=== PATIENT | male | born 1955 | race Caucasian/White ===

== ENCOUNTER 2019-07-03 13:04 | Emergency (ER) | payer MEDICARE ==
[~2019-07-03] VITALS: Ht 188 cm; Wt 130.8 kg
[2019-07-03 13:24] VITALS: BP 167/97
--- NOTE | 2019-07-03 14:10 | NUR ---
PATIENT CHANGED INTO GRREN TOP AND PANTS WITH TECH WATCHING. ALL BELONGINGS INCLUDING WALLET WERE GIVEN TO HIS WHO IS AT BEDSIDE: DUARTE [phone] HOME, [phone] CELL PATIENT AMBULATED INTO ER ROOM 21 WITH NALLELY MARK RN
[2019-07-03 14:20] LABS: URINE AMPHETAMINE SCREEN NEGATIVE (Neg); URINE BARBITUATE SCREEN NEGATIVE (Neg); URINE BENZODIAZEPINES SCREEN NEGATIVE (Neg); URINE CANNABINOID SCREEN NEGATIVE (Neg); URINE COCAINE SCREEN NEGATIVE (Neg); URINE METHADONE SCREEN NEGATIVE (Neg); URINE OPIATE SCREEN NEGATIVE (Neg); URINE PHENCYCLIDINE SCREEN NEGATIVE (Neg)
[2019-07-03 14:40] LABS: BASOPHILS # (AUTO) 0.1 X10'3 (0-0.2); BASOPHILS % (AUTO) 0.9 % (0-1); EOSINOPHILS # (AUTO) 0.1 X10'3 (0-0.9); EOSINOPHILS % (AUTO) 1.6 % (0-6); HEMATOCRIT 40.3 % (42.0-52.0); HEMOGLOBIN 13.3 g/dl (14.0-17.9); LYMPHOCYTES # (AUTO) 1.1 X10'3 (1.1-4.8); LYMPHOCYTES % (AUTO) 16.3 % (21-51); MEAN CORPUSCULAR HEMOGLOBIN 30.6 PG (27.0-31.0); MEAN CORPUSCULAR VOLUME 92.7 FL (78-98); MEAN PLATELET VOLUME 9.1 FL (7.4-10.4); MONOCYTES # (AUTO) 0.7 X10'3 (0-0.9); MONOCYTES % (AUTO) 9.4 % (2-12); NEUTROPHILS % (AUTO) 71.8 % (42-75); PLATELET COUNT 155 X10'3 (140-440); RED BLOOD COUNT 4.35 X10'6 (4.70-6.10); RED CELL DISTRIBUTION WIDTH 13.3 % (11.5-14.5); WHITE BLOOD COUNT 6.9 X10'3 (4.5-11.0)
[2019-07-03 14:57] LABS: ANION GAP 8 (8-16); CHLORIDE 107 MMOL/L (99-107); GLUCOSE 103 MG/DL (70-104); POTASSIUM 3.7 MMOL/L (3.5-5.1); SODIUM 144 MMOL/L (135-145); TOTAL CARBON DIOXIDE 29.3 MMOL/L (24-32)
[2019-07-03 14:58] LABS: ALANINE AMINOTRANSFERASE 28 U/L (12-78); ALBUMIN 3.4 G/DL (3.4-5.0); ALBUMIN/GLOBULIN RATIO 0.9 (1.1-1.5); ALKALINE PHOSPHATASE 86 IU/L (46-116); ASPARTATE AMINO TRANSFERASE 25 U/L (10-37); BILIRUBIN,TOTAL 0.5 MG/DL (0.1-1.0); BLOOD UREA NITROGEN 7 MG/DL (7-18); CALCIUM 8.9 MG/DL (8.5-10.1); TOTAL PROTEIN 7.1 G/DL (6.4-8.2)
[2019-07-03 15:05] LABS: ETHANOL < 0.010 GM/DL (0.0-0.010)
[2019-07-03 15:19] LABS: BUN/CREATININE RATIO 4.1 (5.4-32.0); CREATININE 1.72 MG/DL (0.60-1.10); eGFR 40 ML/MIN
--- NOTE | 2019-07-03 15:31 | NUR ---
The patient is a 63 year old male with a history of depression and/or Bipolar Disorder for at least 30 years. He was doing well for years on lithium and a small dose of xanax as well as paxil. Two months ago he was taken off lithium due to "kidney issues." He was put on Ziprasidone 120 mg at dinnertime, continued Paxil 40mg daily and was having severe insomnia and last night took his first dose of Temazepam 15mg qhs and states he slept for the first time in two weeks." He sees Dr. Hampton. 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 He has had increased severe depression for the last two weeks, has not been eating or sleeping. He is depressed and restless. Has had just a fleeting passive suicidal thought but states he would never kill himself. He is not experiencing any hallucinations and is alert, oriented and articulate. His is at bedside.
--- NOTE | 2019-07-03 15:54 | NUR ---
CALLED LAB, LAB HAS ENOUGH URINE TO RUN UA. LAB WILL RUN UA
[2019-07-03 16:02] LABS: CLARITY,URINE CLEAR (Clear); COLOR,URINE YELLOW (Yellow); GLUCOSE, URINE NEGATIVE (Neg); KETONES,URINE NEGATIVE (Neg); LEUKOCYTE ESTERASE ,URINE NEGATIVE (Neg); NITRITES, URINE NEGATIVE (Neg); OCCULT BLOOD,URINE NEGATIVE (Neg); PROTEIN,URINE NEGATIVE (Neg); UROBILINOGEN,URINE 0.2 E.U/dL (0.2-1.0)
[2019-07-03 16:09] LABS: UA COLLECTION TYPE CLN CATCH MIDSTREAM
--- NOTE | 2019-07-03 16:10 | NUR ---
SPOKE WITH PHARMACIST REGARDING MEDICATION RECONCILLIATION; PRIMARY RN UNABLE TO INPUT; PHARMACIST WILL INPUT MEDICATION RECONCILLIATION.
[2019-07-03] MEDS ORDERED: PARO40TA4 PO (16:13)
[2019-07-03] MEDS ORDERED: ZIPR60CA7 PO (16:13)
[2019-07-03] MEDS ORDERED: TEMA15CA PO (16:13)
--- NOTE | 2019-07-03 16:20 | NUR ---
ELIS Summers at bedside.
--- NOTE | 2019-07-03 16:21 | NUR ---
SPOKE WITH CHAR GILLIS [phone]. HE WILL REVIEW THE PATIENT'S LABS AND COME DOWN AND ASSESS PATIENT.
[2019-07-03] MEDS ORDERED: LORazepam 1 MG tablet PO ONE (16:30)
--- NOTE | 2019-07-03 16:47 | NUR ---
ELIS Summers consulting with patient after speaking with Dr. Hampton (patient's outside doctor)
[2019-07-03] MEDS ORDERED: LAMO25TA4 PO (16:54)
[2019-07-03] MEDS ORDERED: LORA-269 PO (16:54)
--- NOTE | 2019-07-03 17:09 | NUR ---
Patient was given discharge instructions and presciptions. Stated understanding of plan.
== END 2019-07-03 17:12 | disposition home or self-care (01) ==
LOC: ER 13:04
DX: F32.9 Major depressive disorder, single episode, unspecified (principal); F41.9 Anxiety disorder, unspecified; Z79.899 Other long term (current) drug therapy
CPT/HCPCS: 36415; 80053; 80305; 80320; 81003; 84443; 85025; 99284

== ENCOUNTER 2019-08-24 15:47 | Emergency (ER) | payer MEDICARE ==
[~2019-08-24] VITALS: Ht 188 cm; Wt 120.0 kg
[~2019-08-24 15:47] MED LIST: LAMO25TA4 PO; LORA-269 PO; PARO40TA4 PO; TEMA15CA PO; ZIPR60CA7 PO
[2019-08-24] MEDS ORDERED: LAMO100T2 PO (16:34)
[2019-08-24] MEDS ORDERED: LORA-269 PO (16:35)
[2019-08-24] MEDS ORDERED: MIRT15TA PO (16:37)
[2019-08-24] MEDS ORDERED: LURA80TA3 PO (16:42)
[2019-08-24 17:21] LABS: BASOPHILS # (AUTO) 0.1 X10'3 (0-0.2); BASOPHILS % (AUTO) 1.2 % (0-1); EOSINOPHILS # (AUTO) 0.1 X10'3 (0-0.9); EOSINOPHILS % (AUTO) 2.2 % (0-6); HEMATOCRIT 36.8 % (42.0-52.0); HEMOGLOBIN 12.3 g/dl (14.0-17.9); LYMPHOCYTES # (AUTO) 1.6 X10'3 (1.1-4.8); LYMPHOCYTES % (AUTO) 30.1 % (21-51); MEAN CORPUSCULAR HEMOGLOBIN 29.7 PG (27.0-31.0); MEAN CORPUSCULAR HGB CONC 33.5 g/dL (33.0-36.5); MEAN CORPUSCULAR VOLUME 88.6 FL (78-98); MEAN PLATELET VOLUME 8.7 FL (7.4-10.4); MONOCYTES # (AUTO) 0.6 X10'3 (0-0.9); MONOCYTES % (AUTO) 10.8 % (2-12); NEUTROPHILS % (AUTO) 55.7 % (42-75); PLATELET COUNT 177 X10'3 (140-440); RED BLOOD COUNT 4.15 X10'6 (4.70-6.10); RED CELL DISTRIBUTION WIDTH 14.1 % (11.5-14.5); WHITE BLOOD COUNT 5.4 X10'3 (4.5-11.0)
[2019-08-24 17:28] LABS: CLARITY,URINE CLEAR (Clear); COLOR,URINE YELLOW (Yellow); GLUCOSE, URINE NEGATIVE (Neg); KETONES,URINE NEGATIVE (Neg); LEUKOCYTE ESTERASE ,URINE SMALL (Neg); NITRITES, URINE NEGATIVE (Neg); OCCULT BLOOD,URINE TRACE-LYSED (Neg); PROTEIN,URINE NEGATIVE (Neg); UA COLLECTION TYPE CLN CATCH MIDSTREAM; UROBILINOGEN,URINE 0.2 E.U/dL (0.2-1.0)
[2019-08-24 17:34] LABS: ALANINE AMINOTRANSFERASE 28 U/L (12-78); ALBUMIN 3.1 G/DL (3.4-5.0); ALBUMIN/GLOBULIN RATIO 0.8 (1.1-1.5); ALKALINE PHOSPHATASE 87 IU/L (46-116); ANION GAP 7 (8-16); ASPARTATE AMINO TRANSFERASE 18 U/L (10-37); BILIRUBIN,TOTAL 0.4 MG/DL (0.1-1.0); BLOOD UREA NITROGEN 11 MG/DL (7-18); BUN/CREATININE RATIO 6.7 (5.4-32.0); CHLORIDE 107 MMOL/L (99-107); CREATININE 1.63 MG/DL (0.60-1.10); GLUCOSE 92 MG/DL (70-104); POTASSIUM 3.8 MMOL/L (3.5-5.1); SODIUM 141 MMOL/L (135-145); TOTAL CARBON DIOXIDE 26.6 MMOL/L (24-32); TOTAL PROTEIN 6.8 G/DL (6.4-8.2); eGFR 43 ML/MIN
[2019-08-24 17:40] LABS: URINE AMPHETAMINE SCREEN NEGATIVE (Neg); URINE BARBITUATE SCREEN NEGATIVE (Neg); URINE BENZODIAZEPINES SCREEN NEGATIVE (Neg); URINE CANNABINOID SCREEN NEGATIVE (Neg); URINE COCAINE SCREEN NEGATIVE (Neg); URINE METHADONE SCREEN NEGATIVE (Neg); URINE OPIATE SCREEN NEGATIVE (Neg); URINE PHENCYCLIDINE SCREEN NEGATIVE (Neg)
[2019-08-24 17:47] LABS: ETHANOL < 0.010 GM/DL (0.0-0.010)
[2019-08-24 17:48] LABS: BACTERIA,URINE FEW /HPF (Neg); RBC,URINE 0-2 /HPF (0-2); SQUAMOUS EPITHELIAL CELL,UR FEW /LPF (FEW); WBC,URINE 0-4 /HPF (0-4)
--- NOTE | 2019-08-24 18:30 | NUR ---
PACKET FAXED TO [facility] BY TECH
--- NOTE | 2019-08-24 18:57 | NUR ---
INTRODUCED MYSELF , DISCUSED PLAN OF CARE, PATIENT DENIED HAVING ANYNEEDS AT THIS TIME , AAWAITING DR WILLIS AT THIS TIME .
[2019-08-24] MEDS ORDERED: LORazepam 1 MG tablet PO ONE (19:10)
--- NOTE | 2019-08-24 19:20 | NUR ---
PT STATES THE HE TOOK ATIVAN YESTERDAY AND TODAY ONE AT 7 AM , 10 AM 2 PM , EDUCATED PATIENT THAT HE NEEDS TO TRY THE ATIVAN 1 MG PO AND ONCE ABD IF RELEIF IS NOT MET DEEDEE MURPHY WITH .
--- NOTE | 2019-08-24 19:50 | NUR ---
MEDICATED PT WITH 1 MG OF ATIVAN FOR ANXIETY. PT STATES THAT 1 MG MIGHT NOT BE EFFECTIVE HE HAS ALREADY TAKEN THREE TODAY WITHOUT RELEIF. PT STATES THAT HE TAKE 1 MG OF ATIVAN AT 7 AM AGAIN AT 10 AM ANOTHER AT 1400. EDUCATED PATIENT THAT DR WILLIS WOULD LIKE HIM TO TRY THIS NOW AND IF IT DOES NOT OFFER RELIEF WE WILL NOTIFY
--- NOTE | 2019-08-24 19:55 | NUR ---
PT STATES HER SON" LOCKED UP THE GUNS "IN A LOCKED SAFE WHERE THE PATIENT DOES NOT HAVE ACCESS
--- NOTE | 2019-08-24 19:59 | NUR ---
PT OFF UNIT LEFT HER PHONE NUMBER [phone] DUARTE FELDER
--- NOTE | 2019-08-24 20:26 | NUR ---
PT RESTING ON RIGHT SIDE QUIETLY
--- NOTE | 2019-08-24 20:50 | NUR ---
[facility] CALLED REPORTING THAT THE PACKET FAXED WAS INCOMPLETE MISSING [facility] ASKING TO RE FAX PACKET
[2019-08-24] MEDS ORDERED: lurasidone 20mg tablet PO SCH (21:00)
[2019-08-24] MEDS ORDERED: temazepam 15mg capsule PO SCH (21:00)
[2019-08-24] MEDS ORDERED: mirtazapine 15mg tablet PO SCH (21:00)
--- NOTE | 2019-08-24 21:00 | NUR ---
PACKET REFAXED TO [facility] REQUESTED
--- NOTE | 2019-08-24 21:15 | NUR ---
DR WILLIS TO SEE PATIENT
--- NOTE | 2019-08-24 21:45 | NUR ---
PT STATES THAT HE WOULD BE WILLING TO BE ADMITTED TO BE[facility]IOR [facility]ALTH FOR TREATMENT IF NECESSARY.
--- NOTE | 2019-08-24 21:47 | NUR ---
PT VERY COROPORATIVE . MEDICATED WITH HIS 2100 MEDS ORDERED . NO QUESTIOSN ASKED .
--- NOTE | 2019-08-24 22:45 | NUR ---
PT ASLEEP ON HIS RIGHT SIDE RESP UNLABORED WILL CONTINUE TO MONITOR
--- NOTE | 2019-08-25 00:12 | NUR ---
PT SELF REPOSTIONS IN HIS SLEEP. RESP RATE UNLABORED WILL CONTINUE TO MONITOR
--- NOTE | 2019-08-25 00:55 | NUR ---
non admin of 2400 ativan pt asleep ,
--- NOTE | 2019-08-25 02:00 | NUR ---
PT SLEEPING PRONE . SELF REPOSTIONS AURSOABLE UPON ASSSESSMENT. RESP UNLABORED WILL CONINUE TO MONITOR AND REASSESS
--- NOTE | 2019-08-25 02:50 | NUR ---
PT NOW LAYING ON HIS LEFT SIDE SLEEPING , UNLOBERED RESPIRATIONS WILL CONTINUE TO MONITOR
--- NOTE | 2019-08-25 03:41 | NUR ---
PT ASLEEP ON HIS LEFT SIDE RESP UNLABORED WILL CONTINUE TO ASSESS ADN MONITOR
--- NOTE | 2019-08-25 04:47 | NUR ---
PT SLEEPING PEACEFULLY RESP UNLABORED. SELF REPOSITIONING. WILL CONTINUE TO MONITOR AND REASSESS
--- NOTE | 2019-08-25 06:32 | NUR ---
Received report and assumed care for this patient. He is resting in bed peacefully at this time. No distress observed. Will continue to monitor.
[2019-08-25] MEDS ORDERED: lamoTRIgine 100mg tablet PO SCH (08:00)
[2019-08-25] MEDS ORDERED: PARoxetine 20mg tablet PO SCH (08:00)
--- NOTE | 2019-08-25 08:23 | NUR ---
Breaking primary RN, pt sitting up in bed eating breakfast, calm, no agitation apparent
[2019-08-25] MEDS: LORazepam 1 MG tablet PO SCH ×2 (09:01)
--- NOTE | 2019-08-25 10:30 | NUR ---
is at bedside visiting. Pt reports that he is anxious and is noted moving his legs, fidgeting. Atarax given. Will continue to monitor.
[2019-08-25] MEDS ORDERED: hydrOXYzine 25 MG tablet PO ONE (10:40)
--- NOTE | 2019-08-25 11:37 | NUR ---
Breaking primary RN, pt is laying on his left side, his just stepped out, no s/s of agitation at this time
--- NOTE | 2019-08-25 11:45 | NUR ---
Tyler parkinson [facility] is at bedside evaluating the patient, is present
--- NOTE | 2019-08-25 13:30 | NUR ---
Spoke to Tyler from [facility] and Pt has been accepted to Behavioral health floor at [facility]. , Charito notified. Pt states he is happy to hear this news.
--- NOTE | 2019-08-25 14:45 | NUR ---
Pt d/c'd from unit to [facility] floor. He is transported in accompanied by security and [facility] unit tech. All personal items were inventoried and in Pt's possession at time of D/C. No distress observed. D/C information was discussed with patient. All questions were answered and Pt verbalized understanding. Tobacco cessation information declined. notified of transfer. Pt states he is still anxious and has thoughts of SI at times.
[2019-08-25 15:37] VITALS: BP 124/82
== END 2019-08-25 14:45 ==
LOC: ER 15:48
DX: R45.851 Suicidal ideations (principal); F31.9 Bipolar disorder, unspecified; Z79.899 Other long term (current) drug therapy
CPT/HCPCS: 36415; 80053; 80305; 80320; 81001; 84443; 85025; 99285; Z7610

== ENCOUNTER 2019-08-25 14:10 | Inpatient (IN) | payer MEDICARE ==
[~2019-08-25] VITALS: Ht 182.9 cm; Wt 126.8 kg
[~2019-08-25 14:10] MED LIST changes: +LAMO100T2 PO; -LAMO25TA4 PO; +LURA80TA3 PO; +MIRT15TA PO; -ZIPR60CA7 PO
[2019-08-25] MEDS ORDERED: loperamide 2mg capsule PO PRN (15:20)
[2019-08-25] MEDS ORDERED: hydrOXYzine 25 MG tablet PO PRN (15:20)
[2019-08-25] MEDS ORDERED: acetaminophen 325mg tablet PO PRN ×2 (15:20)
[2019-08-25] MEDS ORDERED: LORazepam 1 MG tablet PO PRN (15:20)
[2019-08-25] MEDS ORDERED: mag hydrox/Alum hydrox/simeth 30ml oral suspension PO PRN (15:20)
[2019-08-25] MEDS ORDERED: magnesium hydroxide 30ml (MOM) UD suspension PO PRN (15:20)
--- NOTE | 2019-08-25 15:25 | NUR ---
Admit note: Pt admitted voluntarily for depression with suicidal ideation at 1445. Pt states he told his to lock the guns up due to not feeling safe. Pt states he has been taking his medications. Pt had to stop taking his [place] due to kidney injury. Pt states he feels trapped with no way out. Pt admitted for his safety and medication stabilization.
[2019-08-25 16:56] VITALS: BP 159/85
[2019-08-25 19:43] VITALS: BP 139/81
[2019-08-25] MEDS: mirtazapine 15mg tablet PO SCH (20:24)
[2019-08-25] MEDS: lurasidone 20mg tablet PO SCH (20:24)
--- NOTE | 2019-08-26 01:12 | NUR ---
Progress note: Chief complaint: Depression, SI Legal hold: vol Client on voluntary status for DTS. Report received from nurse Ni with use of SBAR. Why are they here: Pt admitted voluntarily for depression with suicidal ideation after self presenting to ED. Pt states he told his to lock the guns up due to not feeling safe. Pt states he has been taking his medications. Pt had to stop taking his [place] due to kidney injury. Pt states he feels trapped with no way out. Pt admitted for his safety and medication stabilization Diagnosis/presenting symptoms:Depression, SI Assessment What has happened this shift: Pt mostly isolated to his room during shift. He was wearing semi clean green scrubs with unkempt hair. pt was cooperative and friendly during 1:1, reporting that he currently has no physical complaints. pt endorses si, denies hi and a/vh. pt accepted hs meds without issue and went back to bed after snack. S/I, H/I: endorses SI A/VH: denies Sleep:all shift ADL's:independent Group attendance:snack Were meds taken:yes Any med S/E: none observed Mental Status Exam Appearance: wearing scrubs, slightly disheveled Eye contact:good Behavior:calm, tired Speech:clear, normal tone Mood:fatigued Affect:flat Thought process:linear Thought Content:medication management Cognition:good Insight:fair Judgment:fair Interventions PRN's used: none Therapeutic interventions: 1:1 physical assessment, attempted mental health assessment, monitored VS, encouraged pt to interact with staff, encouraged fluids, maintained safe environment, provided active listening with positive reinforcement, Q 15 safety checks. Restraints/seclusion/emergency medication: None Justification of Continued Inpatient Treatment: Pt is in need of crisis interruption and stabilization in a safe and therapeutic environment as well as medication initiation, adjustment, and management.
[2019-08-26 07:00] VITALS: BP 151/94
[2019-08-26 07:59] LABS: HEMOGLOBIN A1C 6.3 % (4.5-6.2)
[2019-08-26] MEDS ORDERED: PARoxetine 20mg tablet PO SCH (08:00)
[2019-08-26 08:01] LABS: CHOL/HDL RATIO 4.1 (0.00-4.99); CHOLESTEROL 154 MG/DL (0-200); HDL CHOLESTEROL 38 MG/DL (35-60); LDL CHOLESTEROL 102 MG/DL (50-100); TRIGLYCERIDES 90 MG/DL (20-135)
[2019-08-26] MEDS: lamoTRIgine 100mg tablet PO SCH (08:17)
[2019-08-26] MEDS: LORazepam 1 MG tablet PO SCH ×4 (08:17→20:18)
[2019-08-26] MEDS ORDERED: pneumococcal 23-VAL P-sac vacc 25 mcg/0.5ml vial IMVAC ONE (10:00)
[2019-08-26] MEDS ORDERED: FLU VACC QS 2019-20 (6 MOS UP) 60 MCG/0.5 ML VIAL IMVAC ONE (10:00)
--- NOTE | 2019-08-26 10:03 | NUR ---
Malnutrition consult: Pt scaled wt this visit 126.8kg, previous scaled weight in June of this year 130.8kg; this is a non significant weight loss of 3% in 2 months. No documented muscle weakness or edema. Pt documented with PO intake avg 75% on regular diet, meeting nutrient needs. Pt does not meet criteria for malnutrition at this time. Will continue to monitor. Addendum: 08/26/19 at 1003 by Wing Emi GABRIEL Amended: Links added. Addendum: 08/26/19 at [address] I have reviewed and agree with note by Wharf Operator. Nevin Rose RD
--- NOTE | 2019-08-26 18:35 | NUR ---
Nursing Progress Note: Chief complaint: Depression, SI Legal hold: voluntary Client on voluntary status for DTS. Report received from nurse Skylar RN with use of SBAR. Why are they here: Pt admitted voluntarily for depression with suicidal ideation after self presenting to ED. Pt states he told his to lock the guns up due to not feeling safe. Pt states he has been taking his medications. Pt had to stop taking his [place] due to kidney disease. Pt states he feels trapped with no way out. Pt admitted for his safety and medication stabilization. Diagnosis/presenting symptoms:Depression, SI Assessment What has happened this shift: Patient napped after breakfast and medications. During 1:1, patient reports that he is feeling anxious thinking about all the work he has to do around his house. Patient states that his depression is a 5/10 on depression scale. Questions answered regarding routine, groups. Patient is hoping to have more activities on unit today, as he was admitted after the groups have taken place yesterday, and he didnt feel there was not enough to do. S/I, H/I: Denies. A/VH: denies Sleep: Slept until 11:00 group. ADL's: independent Group attendance: Yes. Were meds taken: yes Any med S/E: none observed Mental Status Exam Appearance: Clean, tall, slightly disheveled male in hospital attire. Eye contact: Direct. Behavior: Calm, cooperative. Speech:clear, normal rate and volume, paucity of speech. Mood: Depressed. Affect: Flat. Thought process: linear Thought Content: Going to groups, keeping busy on unit. Fixing things at home. Cognition: A&O x 4. Insight: fair Judgment: fair Interventions PRN's used: none Therapeutic interventions: 1:1 physical assessment, attempted mental health assessment, monitored VS, encouraged pt to interact with staff, encouraged fluids, maintained safe environment, provided active listening with positive reinforcement, Q 15 safety checks. Restraints/seclusion/emergency medication: None Justification of Continued Inpatient Treatment: Pt is in need of crisis interruption and stabilization in a safe and therapeutic environment as well as medication initiation, adjustment, and management.
[2019-08-26] MEDS: lurasidone 20mg tablet PO SCH (20:18)
[2019-08-26] MEDS: mirtazapine 15mg tablet PO SCH (20:18)
[2019-08-26 20:33] VITALS: BP_SYST 130; BP_SYST 139; BP_DIAS 79; BP_DIAS 87
--- NOTE | 2019-08-26 22:46 | NUR ---
Nursing Progress Note: Legal hold: Voluntary Client on voluntary basis with suicidal thoughts Report received from Pat PRESLEY with use of SBAR Why are they here: The patient was admitted 08/25/19 from the ER after he presented there with suicidal thoughts with a plan to use a gun. He was taking off his [place] 2nd to Kidney damage. He was admitted for medication stabilization. Assessment What has happened this shift: The patient has been isolating on his bed. He was cooperative with the evening nursing assessment. He stated that he had been sleeping "rotten" because he needed another pillow which was provided for him. He denies active suicidal thoughts but he has no long range plans for his future and he reports he still has passive suicidal thoughts. He denied that he having any psychotic symptoms and none were evident during the assessment. He had a visit which he stated went well. He was dressed in green scrubs but he appeared to be unbathed with uncombed greasy hair. He admits to not having a shower for several days. He reports his appetite is still poor but he has been trying to eat. He reports his anxiety has been high but that the ativan has been helping. S/I, H/I: denies thoughts to harm others but does admit to passive suicidal thoughts A/VH: Denies and none were evident Sleep: reports decreased ability to sleep ADL's: Neglected and requires encouragement Were meds taken: The patient is medication compliant Any med S/E none reported or observed Mental Status Exam Appearance: Older gentlemen who appears depressed, tired and unbathed Eye contact: Fair Behavior: Isolative, hypoactive, friendly and cooperative on approach. Speech: Spontaneous, coherent, monotone, vague Mood: Depressed, helpless, hopeless Affect: Blunted Thought process: logical, linear Thought Content: passive suicidal thoughts, situational difficulties Cognition: alert and oriented Insight: fair Judgment: fair Interventions PRN's used:[] Therapeutic interventions: One to one with the patient to assess severity of depressive symptoms and self harm risk. Educated to medications given. Encouraged to shower Restraints/seclusion/emergency medication:[] Justification of Continued Inpatient Treatment: The patient requires further stabilization of depressive symptoms. He continues to be passively suicidal with high anxiety.
[2019-08-27 07:38] VITALS: BP 154/91
[2019-08-27] MEDS: LORazepam 1 MG tablet PO SCH ×2 (07:40→12:05)
[2019-08-27] MEDS: PARoxetine 20mg tablet PO SCH (07:41)
[2019-08-27] MEDS: buPROPion SR 100mg tab PO SCH (07:42)
[2019-08-27] MEDS: lamoTRIgine 100mg tablet PO SCH (07:42)
--- NOTE | 2019-08-27 15:47 | NUR ---
Nursing Progress Note: Fermin Legal hold: Voluntary Client on voluntary basis with suicidal thoughts Report received from Skylar PRESLEY with use of SBAR Why are they here: The patient was admitted 08/25/19 from the ER after he presented there with suicidal thoughts with a plan to use a gun. He was taking off his [place] 2nd to Kidney damage. He was admitted for medication stabilization. Assessment: What has happened this shift: Client was in bed with eyes closed to begin the shift. Compliant with vitals, assessment and medications. Client came to breakfast and was social with both staff as well as peers. Client returned to his room after breakfast to rest. Client showered and changed his clothing this am. He has been social on the unit with staff and peers alike this am. Client had his lunch in group room and then went to his room where he is currently resting (1435 hours). Patient came out of room for pm snacks and then returned to his room where he is currently resting without problems or distress noted. S/I, H/I: denies thoughts to harm others but does admit to passive suicidal thoughts A/VH: Denies and none were evident Sleep: 7.25 hours last shift. ADL's: Neglected and requires encouragement Were meds taken: The patient is medication compliant Any med S/E none reported or observed Group activities: Attended am group today. Mental Status Exam Appearance: Older gentlemen who appears depressed, tired and unbathed Eye contact: Fair Behavior: Isolative, hypoactive, friendly and cooperative on approach. Speech: Spontaneous, coherent Mood: Depressed, helpless, hopeless Affect: Blunted Thought process: logical, linear Thought Content: passive suicidal thoughts, situational difficulties Cognition: alert and oriented Insight: good Judgment: good Interventions: PRN's used: Therapeutic interventions: One to one with the patient to assess severity of depressive symptoms and self harm risk. Educated to medications given. Restraints/seclusion/emergency medication: Justification of Continued Inpatient Treatment: The patient requires further stabilization of depressive symptoms. He continues to be passively suicidal with high anxiety.
[2019-08-27 20:30] VITALS: BP 124/81
[2019-08-27] MEDS: clonazePAM 1mg tablet PO SCH (20:33)
[2019-08-27] MEDS: mirtazapine 15mg tablet PO SCH (20:33)
[2019-08-27] MEDS: lurasidone 20mg tablet PO SCH (20:34)
--- NOTE | 2019-08-28 02:35 | NUR ---
Nursing Progress Note: Fermin Legal hold: Voluntary Client on voluntary basis with suicidal thoughts Report received from PAUL Fuentes with use of SBAR Why are they here: The patient was admitted 08/25/19 from the ER after he presented there with suicidal thoughts with a plan to use a gun. He was taking off his [place] 2nd to Kidney damage. He was admitted for medication stabilization. Assessment: What has happened this shift: Pt was in his room during shift change resting in bed comfortably. Pt was friendly but not very talkative. Only responding to questions asked. He stated that he had an 8/10 anxiety level and requested an Ativan which was too early. Pt was visited by his and spend about an hour with her in the recreational area. Pt was cooperative during 1:1 physical assessment and took all his PM medications without any issues. Denies S/I and H/I. States that he just wants to get better. Pt also states that he is nervous about his whole situation. Pt remained isolative to his room after left and slept for most of the night. S/I, H/I: denies A/VH: Denies and none were evident Sleep: See sleep assessment ADL's: independent Were meds taken: Yes Any med S/E none reported or observed Mental Status Exam Appearance: appropriately dressed wearing green scrubs Eye contact: appropriate Behavior: Isolative, cooperative, nervous Speech: Spontaneous, coherent, normal rate and rhythm Mood: Depressed Affect: Blunted Thought process: linear, congruent with mood Thought Content: feeling anxious and how to cope with that Cognition: alert and oriented X4 Insight: fair Judgment: fair Interventions: PRN's used: Therapeutic interventions: One to one with the patient to assess severity of depressive symptoms and self harm risk. Educated to medications given. Restraints/seclusion/emergency medication: Justification of Continued Inpatient Treatment: The patient requires further stabilization of depressive symptoms. He continues to be passively suicidal with high anxiety.
[2019-08-28 08:00] VITALS: BP 148/93
[2019-08-28] MEDS: buPROPion SR 100mg tab PO SCH (08:13)
[2019-08-28] MEDS: lamoTRIgine 100mg tablet PO SCH (08:13)
[2019-08-28] MEDS: PARoxetine 20mg tablet PO SCH (08:13)
[2019-08-28] MEDS: clonazePAM 1mg tablet PO SCH ×3 (08:13→21:07)
[2019-08-28] MEDS ORDERED: PARoxetine 10mg tablet PO ONE (11:20)
--- NOTE | 2019-08-28 15:42 | NUR ---
NURSING PROGRESS NOTE Legal hold: Voluntary Client on voluntary basis with suicidal thoughts Report received from FERNANDEZ Gastelum with use of SBAR Why are they here: The patient was admitted 08/25/19 from the ER after he presented there with suicidal thoughts with a plan to use a gun. He was taking off his [place] 2nd to Kidney damage. He was admitted for medication stabilization. Assessment What has happened this shift: The patient reports feeling more anxious than depressed. Reports having fleeting passive suicidal thoughts. He is concerned about his medications and changes. States he would like to "go back on lithium, and just deal with the kidney problems." He is depressed with a flat affect. He is cooperative and polite, mostly isolating to room, gets up for meals. S/I, H/I: passive SI A/VH: Denies/ not seen Sleep: poor ADL's: needs to be encouraged Were meds taken: Yes Any med S/E none reported or observed Mental Status Exam Appearance: slightly disheveled Eye contact: good Behavior: Isolative Speech: soft Mood: Depressed and sad Affect: flat Thought process: logical Thought Content: wanting to get well, asking about meds Cognition: alert and oriented Insight: fair Judgment: fair Interventions PRN's used: None Therapeutic interventions: 1:1 assessment . Educated regarding medications. Encouraged to shower and attend groups, build rapport, provide a safe and therapeutic environment. Restraints/seclusion/emergency medication: none Justification of Continued Inpatient Treatment: The patient requires further stabilization of depressive symptoms. He continues to be passively suicidal with high anxiety.
[2019-08-28 20:00] VITALS: BP 125/87
[2019-08-28] MEDS: mirtazapine 15mg tablet PO SCH (21:07)
[2019-08-28] MEDS: lurasidone 20mg tablet PO SCH (21:07)
--- NOTE | 2019-08-29 01:15 | NUR ---
NURSING PROGRESS NOTE Legal hold: Voluntary Client on voluntary basis with suicidal thoughts Report received from PAUL Fuentes with use of SBAR Why are they here: The patient was admitted 08/25/19 from the ER after he presented there with suicidal thoughts with a plan to use a gun. He was taking off his [place] 2nd to Kidney damage. He was admitted for medication stabilization. Assessment What has happened this shift: Pt was in his room resting comfortably in his bed during shift change. At 1900 pt got out of his room and visited with his daughter. This seemed to cheer him up but still appeared to be depressed. This was the only time pt was seen out of his room. Pt was polite and cooperative during 1:1 physical and took all his PM medications without any issues. Pt rated his anxiety an 8/10. Pt denies S/I and states that his main goal is to manage his depression. He remained isolative in his room the remainder of the night. Did not socialized with any of the other clients in the unit. S/I, H/I: denies A/VH: Denies/ not seen Sleep: poor ADL's: independent Were meds taken: Yes Any med S/E none reported or observed Mental Status Exam Appearance: slightly disheveled, wearing green scrubs Eye contact: good Behavior: Isolative Speech: soft, normal rate and rhythm Mood: euthymic Affect: flat Thought process: appropriate, logical Thought Content: wanting to get well, asking about meds Cognition: alert and oriented Insight: fair Judgment: fair Interventions PRN's used: None Therapeutic interventions: 1:1 assessment . Educated regarding medications. Encouraged to shower and attend groups, build rapport, provide a safe and therapeutic environment. Restraints/seclusion/emergency medication: none Justification of Continued Inpatient Treatment: The patient requires further stabilization of depressive symptoms. He continues to be passively suicidal with high anxiety.
[2019-08-29 07:37] VITALS: BP 100/54
[2019-08-29] MEDS: PARoxetine 10mg tablet PO SCH (08:43)
[2019-08-29] MEDS: buPROPion SR 100mg tab PO SCH (08:43)
[2019-08-29] MEDS: lamoTRIgine 100mg tablet PO SCH (08:43)
[2019-08-29] MEDS: clonazePAM 1mg tablet PO SCH ×3 (08:43→20:59)
[2019-08-29 09:57] LABS: ALANINE AMINOTRANSFERASE 22 U/L (12-78); ALBUMIN/GLOBULIN RATIO 0.8 (1.1-1.5); ALKALINE PHOSPHATASE 79 IU/L (46-116); ANION GAP 8 (8-16); ASPARTATE AMINO TRANSFERASE 17 U/L (10-37); BILIRUBIN,TOTAL 0.4 MG/DL (0.1-1.0); BLOOD UREA NITROGEN 12 MG/DL (7-18); BUN/CREATININE RATIO 6.4 (5.4-32.0); CALCIUM 8.9 MG/DL (8.5-10.1); CHLORIDE 108 MMOL/L (99-107); CREATININE 1.87 MG/DL (0.60-1.10); GLUCOSE 133 MG/DL (70-104); POTASSIUM 4.2 MMOL/L (3.5-5.1); SODIUM 143 MMOL/L (135-145); TOTAL CARBON DIOXIDE 27.3 MMOL/L (24-32); TOTAL PROTEIN 6.6 G/DL (6.4-8.2); eGFR 36 ML/MIN
--- NOTE | 2019-08-29 17:36 | NUR ---
NURSING PROGRESS NOTE Legal hold: Voluntary Client on voluntary basis with suicidal thoughts Report received from FERNANDEZ Gastelum with use of SBAR Why are they here: The patient was admitted 08/25/19 from the ER after he presented there with suicidal thoughts with a plan to use a gun. He was taking off his [place] 2nd to Kidney damage. He was admitted for medication stabilization. Assessment What has happened this shift: Patient came out of the room for meals, the movie and the group, but did not initiate interaction with others. during one to one with nurse, patient continues to endorse depression with suicidal thoughts. Patient affect remains extremely flat. S/I, H/I: passive SI A/VH: Denies/ not seen Sleep: poor ADL's: needs to be encouraged Were meds taken: Yes Any med S/E none reported or observed Mental Status Exam Appearance: slightly disheveled Eye contact: good Behavior: Isolative Speech: soft Mood: Depressed and sad Affect: flat Thought process: logical Thought Content: wanting to get well, asking about meds Cognition: alert and oriented Insight: fair Judgment: fair Interventions PRN's used: None Therapeutic interventions: 1:1 assessment . Educated regarding medications. Encouraged to shower and attend groups, build rapport, provide a safe and therapeutic environment. Restraints/seclusion/emergency medication: none Justification of Continued Inpatient Treatment: The patient requires further stabilization of depressive symptoms. He continues to be passively suicidal with high anxiety.
[2019-08-29 20:00] VITALS: BP 136/81
[2019-08-29] MEDS: mirtazapine 15mg tablet PO SCH (20:59)
[2019-08-29] MEDS: lurasidone 20mg tablet PO SCH (20:59)
--- NOTE | 2019-08-30 01:39 | NUR ---
NURSING PROGRESS NOTE Legal hold: Voluntary Client on voluntary basis with suicidal thoughts Report received from FERNANDEZ Gastelum with use of SBAR Why are they here: The patient was admitted 08/25/19 from the ER after he presented there with suicidal thoughts with a plan to use a gun. He was taking off his [place] 2nd to Kidney damage. He was admitted for medication stabilization. Assessment What has happened this shift: Pt was in his room resting during shift change. Pt was very polite and cooperative during 1:1 physical assessment and took all his PM meds without any problems. Pt remained isolative most of the evening and came out to visit with his but then went back to his room. Pt is denying S/I and states he is currently not having any anxiety. He states that he feels good and had a pretty good day. Pt was complaining of constipation and one dose of milk of magnesium was provided. S/I, H/I: denies A/VH: Denies Sleep: poor ADL's: needs to be encouraged Were meds taken: Yes Any med S/E none reported or observed Mental Status Exam Appearance: appropriate, wearing green scrubs Eye contact: good Behavior: Isolative Speech: soft Mood: great Affect: flat Thought process: logical Thought Content: wanting to get well, asking about meds Cognition: alert and oriented Insight: fair Judgment: fair Interventions PRN's used: None Therapeutic interventions: 1:1 assessment . Educated regarding medications. Encouraged to shower and attend groups, build rapport, provide a safe and therapeutic environment. Restraints/seclusion/emergency medication: none Justification of Continued Inpatient Treatment: The patient requires further stabilization of depressive symptoms. He continues to be passively suicidal with high anxiety.
[2019-08-30 07:51] VITALS: BP 114/74
[2019-08-30] MEDS: clonazePAM 1mg tablet PO SCH (08:25)
[2019-08-30] MEDS: PARoxetine 10mg tablet PO SCH (08:25)
[2019-08-30] MEDS: buPROPion SR 100mg tab PO SCH (08:25)
[2019-08-30] MEDS: lamoTRIgine 100mg tablet PO SCH (08:25)
--- NOTE | 2019-08-30 10:26 | NUR ---
Initial: Pt admit w/ SI PO 75-100% regular diet meeting needs. LBM 08/29. No nutrition concerns at this time. Will continue to monitor. Rec: 1. continue regular diet 2. bowel care as needed 3. wt per rx Addendum: 08/30/19 at [address] Amended: Links added.
[2019-08-30] MEDS ORDERED: CLON-286 PO (12:23)
[2019-08-30] MEDS ORDERED: BUPR100T7 PO (12:23)
[2019-08-30] MEDS ORDERED: PARO10TA4 PO (12:23)
--- NOTE | 2019-08-30 14:56 | NUR ---
Discharge Note The patient was admitted 08/25/19 from the ER after he presented with suicidal ideation with a plan to use a gun. It was noted he has guns in his home. As well as, he had stopped his [place] secondary to Kidney disease. He was admitted for medication stabilization. Prior to admit pt was having difficulties sleeping from nightmares. He had a decreased appetite and had lost 50 lbs. He also had a large amount of anxiety because of stress on the job. At discharge pt reports, I am sleeping well since I am no longer having nightmares, my appetite is much better and I feel calm enough to deal with the stress at work now that I am on Klonopin TID. He also told this nurse and others that all the guns were removed from his home. Pts personal property returned and signed off with Emily CASTELLANO. Pt discharged home. Pt declined nicotine replacement. Pt returned home to live with his and return to his job.
--- NOTE | 2019-08-31 08:20 | NUR ---
Pt was d/c'd over the weekend w/plan to contact outpt provider to schedule post-hosp f/u. SS referral's closed. Bella Stephen Addendum: 08/31/19 at 0821 by Bella Stephen SS Amended: Links added.
== END 2019-08-30 13:10 | disposition home or self-care (01) | DRG 885 ==
LOC: ADULT MH 14:10
PROVIDERS: ADMIT Psychiatry & Neurology Psychiatry; ATTEND Psychiatry & Neurology Psychiatry
DX: F31.9 Bipolar disorder, unspecified (principal); R45.851 Suicidal ideations; F41.9 Anxiety disorder, unspecified; Z86.711 Personal history of pulmonary embolism; Z81.8 Family history of other mental and behavioral disorders; Z82.49 Family history of ischemic heart disease and other diseases of the circulatory system
CPT/HCPCS: 36415; 80053; 80061; 80305; 80320; 81001; 83036; 84443; 85025; 87081; 90471; 90732; 99285; Q2037; Z7610